=== PATIENT | male | born 1945 | race Caucasian/White ===

== ENCOUNTER → 2023-08-26 10:04 | Outpatient (REF) | payer MEDICARE, OTHER, SELFPAY ==
[2023-08-26 12:09] LABS: % Basophils 0.4 % (0-2); % Eosinophils 4.6 % (0-6); % Immature Granulocytes 0.2 % (0-0.5); % Lymphocytes 24.6 % (20.5-51.1); % Monocytes 7.7 % (1.7-9.3); % Neutrophils 62.5 % (42.2-75.2); Absolute Eosinophils 0.3 10^3/uL (0-0.7); Absolute Lymphocytes 1.4 10^3/uL (1.2-3.4); Absolute Monocytes 0.4 10^3/uL (0.1-0.6); Absolute Neutrophils 3.5 10^3/uL (1.4-6.5); Hematocrit 34.8 % (39.0-52.0); Hemoglobin 12.2 g/dL (13.0-18.0); Mean Corp Hgb Conc. 35.1 g/dL (33.0-37.0); Mean Corpuscular Hgb 33.1 pg (27.0-31.0); Mean Corpuscular Volume 94.3 fL (80.0-94.0); Mean Platelet Volume 10.5 fL (7.4-10.4); Nucleated Red Blood Cells % 0 % (-); Platelet Count 203 10^3/uL (130-400); Red Blood Cell Count 3.69 10^6/uL (4.70-6.10); Red Cell Dist. Width 13.8 % (11.5-14.5); White Blood Cell Count 5.6 10^3/uL (4.8-10.8)
[2023-08-26 12:15] LABS: ALT (SGPT) 15 U/L (0-50); AST (SGOT) 28 U/L (17-59); Albumin 4.1 g/dl (3.5-5.0); Alkaline Phosphatase 53 U/L (38-126); Blood Urea Nitrogen 21 mg/dl (9-20); Carbon Dioxide 28 mmol/L (22-30); Chloride 106 mmol/L (98-107); Glucose 97 mg/dl (70-99); Potassium 4.3 mmol/L (3.5-5.1); Sodium 141 mmol/L (135-145); Total Bilirubin 0.7 mg/dl (0.2-1.3); Total Protein 6.6 g/dl (6.3-8.2); eGFR > 60.00
== END ==
LOC: HWLAB 10:04
PROVIDERS: ATTENDING PHYSICIAN Internal Medicine Hematology & Oncology; FAMILY PHYSICIAN Internal Medicine
DX: C49.A2 Gastrointestinal stromal tumor of stomach (principal); R05.1 Acute cough
CPT/HCPCS: 36415; 80053; 85025

== ENCOUNTER → 2023-09-23 15:13 | Outpatient (REF) | payer MEDICARE, OTHER, SELFPAY | LOC: HWRAD 15:13 | PROVIDERS: ATTENDING PHYSICIAN Internal Medicine Hematology & Oncology; FAMILY PHYSICIAN Internal Medicine | DX: C49.A2 Gastrointestinal stromal tumor of stomach (principal) | CPT/HCPCS: 71260; 74177; Q9967 ==

== ENCOUNTER → 2023-11-28 10:03 | Outpatient (REF) | payer MEDICARE, OTHER, SELFPAY ==
[2023-11-28 11:27] LABS: % Basophils 0.5 % (0-2); % Eosinophils 4.2 % (0-6); % Immature Granulocytes 0.2 % (0-0.5); % Lymphocytes 24.7 % (20.5-51.1); % Monocytes 7.6 % (1.7-9.3); % Neutrophils 62.8 % (42.2-75.2); Absolute Eosinophils 0.2 10^3/uL (0-0.7); Absolute Lymphocytes 1.4 10^3/uL (1.2-3.4); Absolute Monocytes 0.4 10^3/uL (0.1-0.6); Absolute Neutrophils 3.5 10^3/uL (1.4-6.5); Hematocrit 36.3 % (39.0-52.0); Hemoglobin 12.6 g/dL (13.0-18.0); Mean Corp Hgb Conc. 34.7 g/dL (33.0-37.0); Mean Corpuscular Hgb 33.5 pg (27.0-31.0); Mean Corpuscular Volume 96.5 fL (80.0-94.0); Mean Platelet Volume 10.5 fL (7.4-10.4); Nucleated Red Blood Cells % 0 % (-); Platelet Count 200 10^3/uL (130-400); Red Blood Cell Count 3.76 10^6/uL (4.70-6.10); Red Cell Dist. Width 14.1 % (11.5-14.5); White Blood Cell Count 5.5 10^3/uL (4.8-10.8)
[2023-11-28 11:49] LABS: ALT (SGPT) 16 U/L (0-50); AST (SGOT) 29 U/L (17-59); Albumin 4.1 g/dl (3.5-5.0); Alkaline Phosphatase 53 U/L (38-126); Blood Urea Nitrogen 21 mg/dl (9-20); Calcium 9.2 mg/dl (8.4-10.2); Carbon Dioxide 26 mmol/L (22-30); Chloride 106 mmol/L (98-107); Glucose 96 mg/dl (70-99); Potassium 4.3 mmol/L (3.5-5.1); Sodium 144 mmol/L (135-145); Total Bilirubin 0.8 mg/dl (0.2-1.3); Total Protein 6.5 g/dl (6.3-8.2); eGFR > 60.00
== END ==
LOC: HWLAB 10:03
PROVIDERS: ATTENDING PHYSICIAN Internal Medicine Hematology & Oncology; FAMILY PHYSICIAN Nurse Practitioner Family
DX: C49.A2 Gastrointestinal stromal tumor of stomach (principal)
CPT/HCPCS: 36415; 80053; 85025

== ENCOUNTER → 2023-12-10 08:00 | Outpatient (REF) | payer MEDICARE, OTHER, SELFPAY ==
[2023-12-10 09:45] LABS: % Basophils 0.5 % (0-2); % Immature Granulocytes 0.2 % (0-0.5); % Lymphocytes 20.8 % (20.5-51.1); % Monocytes 7.8 % (1.7-9.3); % Neutrophils 65.7 % (42.2-75.2); Absolute Eosinophils 0.2 10^3/uL (0-0.7); Absolute Lymphocytes 0.9 10^3/uL (1.2-3.4); Absolute Monocytes 0.3 10^3/uL (0.1-0.6); Absolute Neutrophils 2.8 10^3/uL (1.4-6.5); Hematocrit 34.7 % (39.0-52.0); Hemoglobin 12.4 g/dL (13.0-18.0); Mean Corp Hgb Conc. 35.7 g/dL (33.0-37.0); Mean Corpuscular Hgb 33.9 pg (27.0-31.0); Mean Corpuscular Volume 94.8 fL (80.0-94.0); Mean Platelet Volume 10.7 fL (7.4-10.4); Nucleated Red Blood Cells % 0 % (-); Platelet Count 189 10^3/uL (130-400); Red Blood Cell Count 3.66 10^6/uL (4.70-6.10); Red Cell Dist. Width 13.7 % (11.5-14.5); White Blood Cell Count 4.2 10^3/uL (4.8-10.8)
[2023-12-10 09:51] LABS: ALT (SGPT) 13 U/L (0-50); AST (SGOT) 24 U/L (17-59); Albumin 3.8 g/dl (3.5-5.0); Alkaline Phosphatase 50 U/L (38-126); Blood Urea Nitrogen 19 mg/dl (9-20); Calcium 9.1 mg/dl (8.4-10.2); Carbon Dioxide 26 mmol/L (22-30); Chloride 109 mmol/L (98-107); Glucose 105 mg/dl (70-99); HDL Cholesterol 37 mg/dl; LDL Cholesterol, Calculated 92 mg/dl; Potassium 4.2 mmol/L (3.5-5.1); Sodium 144 mmol/L (135-145); Total Bilirubin 0.7 mg/dl (0.2-1.3); Total Cholesterol 145 mg/dl (50-199); Total Protein 6.2 g/dl (6.3-8.2); Triglyceride 82 mg/dl (10-149); Very Low Density Lipoprotein 16 mg/dl (0-30); eGFR > 60.00
[2023-12-10 10:20] LABS: TSH Reflex To Free T4 1.61 uIU/ml (0.47-4.68)
[2023-12-10 11:40] LABS: Glycohemoglobin (HgbA1c) 5.4 % (4.0-5.6)
== END ==
LOC: HWLAB 08:00
PROVIDERS: ATTENDING PHYSICIAN Nurse Practitioner Family
DX: Z01.818 Encounter for other preprocedural examination (principal); N40.1 Benign prostatic hyperplasia with lower urinary tract symptoms; Z00.00 Encounter for general adult medical examination without abnormal findings; H91.93 Unspecified hearing loss, bilateral; M48.02 Spinal stenosis, cervical region; M48.061 Spinal stenosis, lumbar region without neurogenic claudication; R73.01 Impaired fasting glucose; Z86.010 Personal history of colon polyps; E66.9 Obesity, unspecified; N18.31 Chronic kidney disease, stage 3a; E78.2 Mixed hyperlipidemia; K59.01 Slow transit constipation; Z85.09 Personal history of malignant neoplasm of other digestive organs; G47.00 Insomnia, unspecified; R42 Dizziness and giddiness; R25.9 Unspecified abnormal involuntary movements; K21.9 Gastro-esophageal reflux disease without esophagitis
CPT/HCPCS: 36415; 80053; 80061; 83036; 84443; 85025

== ENCOUNTER → 2024-01-03 06:21 | Day surgery (SDC) | payer MEDICARE, OTHER, SELFPAY | LOC: GI 06:21 | PROVIDERS: ATTENDING PHYSICIAN Internal Medicine Gastroenterology | DX: Z12.11 Encounter for screening for malignant neoplasm of colon (principal); Z86.010 Personal history of colon polyps; K64.8 Other hemorrhoids; Q43.8 Other specified congenital malformations of intestine | CPT/HCPCS: G0105 ==

== ENCOUNTER 2024-02-13 14:09 | Emergency (ER) | payer MEDICARE, OTHER, SELFPAY ==
[2024-02-13 14:11] VITALS: BP 114/80
[2024-02-13 14:33] LABS: % Basophils 0.2 % (0-2); % Eosinophils 0.4 % (0-6); % Immature Granulocytes 0.2 % (0-0.5); % Lymphocytes 19.4 % (20.5-51.1); % Monocytes 13.4 % (1.7-9.3); % Neutrophils 66.4 % (42.2-75.2); Absolute Lymphocytes 0.9 10^3/uL (1.2-3.4); Absolute Monocytes 0.6 10^3/uL (0.1-0.6); Absolute Neutrophils 3.1 10^3/uL (1.4-6.5); Hematocrit 35.5 % (39.0-52.0); Hemoglobin 12.7 g/dL (13.0-18.0); Mean Corp Hgb Conc. 35.8 g/dL (33.0-37.0); Mean Corpuscular Hgb 32.2 pg (27.0-31.0); Mean Corpuscular Volume 89.9 fL (80.0-94.0); Mean Platelet Volume 10.4 fL (7.4-10.4); Nucleated Red Blood Cells % 0 % (-); Platelet Count 163 10^3/uL (130-400); Red Blood Cell Count 3.95 10^6/uL (4.70-6.10); Red Cell Dist. Width 13.6 % (11.5-14.5); White Blood Cell Count 4.7 10^3/uL (4.8-10.8)
[2024-02-13 14:49] LABS: ALT (SGPT) 17 U/L (0-50); AST (SGOT) 30 U/L (17-59); Albumin 4.1 g/dl (3.5-5.0); Alkaline Phosphatase 44 U/L (38-126); Blood Urea Nitrogen 17 mg/dl (9-20); Calcium 8.6 mg/dl (8.4-10.2); Carbon Dioxide 22 mmol/L (22-30); Chloride 103 mmol/L (98-107); Glucose 128 mg/dl (70-99); Potassium 3.7 mmol/L (3.5-5.1); Sodium 138 mmol/L (135-145); Total Bilirubin 0.6 mg/dl (0.2-1.3); Total Protein 6.6 g/dl (6.3-8.2); eGFR > 60.00
--- NOTE | 2024-02-13 14:59 | ED.GENMED ---
History of Present Illness
General
Chief Complaint: Seizure
Time Seen by Provider: 02/13/24 14:58
History of Present Illness
History of Present Illness:
TIME OF INITIAL ENCOUNTER: 3 PM
HPI: concerned of possible seizure. H/o gastric cancer. Around 1am today, heard him collapse, she went over to him and he 'stiffened up' for about 10 seconds then was talking but confused. This happened again a few minutes later. No
episodes since, but had a similar episode 6M ago. Called his oncologist who sent him in. Also reports LUE tremor intermittently (none currently on exam). No benzos/alcohol. COVID-positive 2 days ago. No bowel or bladder incontinence. No
significant postictal state. He is on Gleevec., [facility].
EXAM:
GENERAL: Well appearing in no distress
HEENT: Moist oral mucosa
CARDIOVASCULAR: No murmurs, normal heart rate, regular rhythm, No chest wall tenderness
PULMONARY: No respiratory distress, breath sounds are clear and equal
ABDOMEN: Soft with no peritoneal signs, no tenderness
NEUROLOGIC: Excellent strength all extremities, no coordination deficits
PSYCHIATRIC: Appropriate mental status, normal insight and judgement
EXTREMITIES: Nontender, no edema, moves all extremities equally
SKIN: No rash, no lesions
NUMBER AND COMPLEXITY OF PROBLEMS ADDRESSED AT THE ENCOUNTER
� Chronic conditions affecting care: Gastric cancer, GERD, former smoker, hyperlipidemia
� Acute Exacerbation and/or Progression of Chronic Illness: This is an acute problem
� Differential Diagnosis includes: Syncope, viral syndrome, dehydration, seizure, metastatic disease
AMOUNT AND/OR COMPLEXITY OF DATA TO BE REVIEWED AND ANALYZED
� I performed an independent evaluation of and my interpretation is:
EKG:
CT: I personally reviewed CT imaging and see no acute abnormality and agree with radiologist interpretation
X-rays:
Laboratory Studies: CBC is unremarkable, chemistries
Other:
� Review of other/old records: I looked at old records but I see no prior imaging of the brain
� Clinical information was obtained by an independent historian: I spoke to the at bedside
� Prescriptions/Medications Considered but not given:
� Further testing considered but not performed:
RISK OF COMPLICATIONS AND/OR MORBIDITY OR MORTALITY OF PATIENT MANAGEMENT
� Social determinants of health affecting care: Lives at home
� Discussion with other providers: I discussed case with Dr. Berry at 3:30 PM�he recommends outpatient MRI with and without contrast of the brain as well as Keppra 1000 mg twice daily
� Escalation of care including admission/observation vs risk of discharge considered: The patient was observed in the ED and there has been no further episodes.
ANY OTHER UPDATES:
3:45 PM: No further episodes in the ED, well-appearing on reassessment
Past History
Past History
ED Past Medical History: Cancer (gist) and Hypercholesterolemia
ED Past Surgical History: Negative Cardiac
Social History
Tobacco: Non-smoker
Alcohol: None
Drug: None
Personal:
Living: with family
Employment: Retired
Family History
Family History: Other (Noncontributory)
Phy Exam
Physical Exam
Physical Exam:
See HPI
Course
Orders/Labs/Results
Orders:
Orders
02/13/24 14:14
CT Head W/o Iv Contrast Urgent
Comment:
Reason For Exam: seizure.
02/13/24 14:26
Complete Blood Count/With Diff Urgent
Comprehensive Metabolic Panel Urgent
02/13/24 15:43
Levetiracetam [Keppra] 1,000 mg PO NOW STA
Abnormal Lab Results
02/13/24
14:26
WBC 4.7 L 10^3/uL
(4.8-10.8)
RBC 3.95 L 10^6/uL
(4.70-6.10)
Hgb 12.7 L g/dL
(13.0-18.0)
Hct 35.5 L %
(39.0-52.0)
MCH 32.2 H pg
(27.0-31.0)
Absolute Lymphs (auto) 0.9 L 10^3/uL
(1.2-3.4)
Lymphocytes % 19.4 L %
(20.5-51.1)
Monocytes % 13.4 H %
(1.7-9.3)
Glucose 128 H mg/dl
(70-99)
02/13/24 14:26
02/13/24 14:26
Vital Signs
Initial and Last Documented VS:
Initial Vital Signs
Temp Pulse Resp BP Pulse Ox
98.4 F 88 19 114/80 97
02/13/24 14:11 02/13/24 14:11 02/13/24 14:11 02/13/24 14:11 02/13/24 14:11
Last Documented Vital Signs
Temp Pulse Resp BP Pulse Ox
98.4 F 88 19 114/80 97
02/13/24 14:11 02/13/24 14:11 02/13/24 14:11 02/13/24 14:11 02/13/24 14:11
*Critical Care Note
Total Time (30-74mins, 75-104mins- exclusive of procedures): Not Applicable
ED Attending Note
-
Portions of this chart may have been created with voice recognition software.� Occasional wrong word or��sound alike� substitutions may have occurred due to the inherent limitations of voice recognition software.
Discharge Plan
Departure
Patient Disposition: Home (Routine Discharge)
Date of Disposition: 02/13/24
Time of Disposition: 15:43
Patient with high blood pressure during this ER visit?: Yes
Discharge Problem:
Syncope and collapse
Instructions: Seizures, Adult (DC), Syncope (Fainting) (DC)
Prescriptions:
New
levetiracetam 1,000 mg tablet
1,000 mg PO BID 14 Days Qty: 60 0RF
No Action
pravastatin 40 MG tablet
40 mg PO QPM
dutasteride 0.5 MG capsule
0.5 mg PO QPM
polyethylene glycol 3350 17 GRAMS powder in packet
17 grams PO BID
gabapentin 300 MG capsule
300 mg PO TID Qty: 0 0RF
famotidine [Pepcid] 40 MG tablet
20 mg PO BID Qty: 30 0RF
Referrals:
Skyler Liu CRNP [Family Provider] -
Gabriel Berry MD [Active] - Follow up in 2-3 days
Activity Restrictions/Additional Instructions:
The cause of your symptoms is unclear. Is possible you may have had a seizure. Therefore I recommend no driving until cleared by your doctors. CAT scan of the brain shows no abnormality. I discussed your case with one of the neurologist
Carlos, who recommends starting seizure medicine called Keppra 1000 mg twice daily. He also recommends going to your primary care doctor to arrange for an EEG and MRI with and without contrast of the brain.
Interventions
Interventions:
*Risk Screen - Suicide Last Done: 02/13/24 14:11
*General Assessment Last Done: 02/13/24 14:11
*Neglect/Abuse Screening Last Done: 02/13/24 14:11
ED- Fall Risk Assessment Last Done: 02/13/24 15:41
ED- Cardiac Assessment Last Done: 02/13/24 15:41
ED- Neurological Assessment Last Done: 02/13/24 15:41
ED- Pulmonary Assessment Last Done: 02/13/24 15:41
Discharge Date and Time
Print Language: SLOVAK
[2024-02-13] MEDS: KEPPRA 1000 MG PO (15:54)
[2024-02-13 16:00] VITALS: BP 128/73
== END 2024-02-13 16:05 | disposition home or self-care (01) ==
LOC: EMR 14:09
PROVIDERS: EMERGENCY PHYSICIAN Emergency Medicine; FAMILY PHYSICIAN Nurse Practitioner Family
DX: R55 Syncope and collapse (principal); E78.00 Pure hypercholesterolemia, unspecified
CPT/HCPCS: 99284; 70450; 80053; 85025

== ENCOUNTER → 2024-02-17 14:17 | Outpatient (REF) | payer MEDICARE, OTHER, SELFPAY | LOC: HWRAD 14:17 | PROVIDERS: ATTENDING PHYSICIAN Nurse Practitioner Family | DX: R29.90 Unspecified symptoms and signs involving the nervous system (principal) | CPT/HCPCS: 70030 ==

== ENCOUNTER → 2024-02-20 18:50 | Outpatient (REF) | payer MEDICARE, OTHER, SELFPAY | LOC: MRI 18:50 | PROVIDERS: ATTENDING PHYSICIAN Nurse Practitioner Family | DX: R56.9 Unspecified convulsions (principal) | CPT/HCPCS: 70553; A9575 ==

== ENCOUNTER → 2024-02-21 10:03 | Outpatient (REF) | payer MEDICARE, OTHER, SELFPAY ==
[2024-02-21 13:37] LABS: Vitamin B12 953 pg/ml (239-931)
== END ==
LOC: HWLAB 10:03
PROVIDERS: ATTENDING PHYSICIAN Nurse Practitioner Family
DX: R56.9 Unspecified convulsions (principal); R29.90 Unspecified symptoms and signs involving the nervous system; E53.8 Deficiency of other specified B group vitamins
CPT/HCPCS: 36415; 82607

== ENCOUNTER → 2024-03-09 10:21 | Outpatient (REF) | payer MEDICARE, OTHER, SELFPAY | LOC: HWRAD 10:21 | PROVIDERS: ATTENDING PHYSICIAN Internal Medicine Hematology & Oncology; FAMILY PHYSICIAN Nurse Practitioner Family; REFERRING PHYSICIAN Surgery | DX: C49.A2 Gastrointestinal stromal tumor of stomach (principal) | CPT/HCPCS: 71260; 74177; Q9967 ==

== ENCOUNTER 2024-04-21 06:25 | Day surgery (SDC) | payer MEDICARE, OTHER, SELFPAY ==
[2024-04-21 09:28] VITALS: BMI 28.3
[2024-04-21 09:30] VITALS: BMI 28.3
[2024-04-21 09:32] VITALS: BP 149/82
[2024-04-21 12:18] VITALS: BP 115/75
[2024-04-21 12:30] VITALS: BP 132/78
[2024-04-21 12:45] VITALS: BP 130/76
== END 2024-04-21 13:20 | disposition home or self-care (01) ==
LOC: GI 06:25
PROVIDERS: ATTENDING PHYSICIAN Internal Medicine Gastroenterology
DX: K63.89 Other specified diseases of intestine (principal); K64.0 First degree hemorrhoids; R93.3 Abnormal findings on diagnostic imaging of other parts of digestive tract; D12.0 Benign neoplasm of cecum; D12.3 Benign neoplasm of transverse colon
CPT/HCPCS: 45385; 45381; 45380; 88305

== ENCOUNTER → 2024-08-20 10:08 | Outpatient (REF) | payer MEDICARE, OTHER, SELFPAY ==
[2024-08-20 12:04] LABS: % Basophils 0.4 % (0-2); % Eosinophils 2.2 % (0-6); % Immature Granulocytes 0.4 % (0-0.5); % Lymphocytes 23.4 % (20.5-51.1); % Monocytes 6.3 % (1.7-9.3); % Neutrophils 67.3 % (42.2-75.2); Absolute Eosinophils 0.2 10^3/uL (0-0.7); Absolute Lymphocytes 1.6 10^3/uL (1.2-3.4); Absolute Monocytes 0.4 10^3/uL (0.1-0.6); Absolute Neutrophils 4.6 10^3/uL (1.4-6.5); Hematocrit 40.4 % (39.0-52.0); Hemoglobin 13.7 g/dL (13.0-18.0); Mean Corp Hgb Conc. 33.9 g/dL (33.0-37.0); Mean Corpuscular Hgb 30.2 pg (27.0-31.0); Mean Platelet Volume 11.3 fL (7.4-10.4); Nucleated Red Blood Cells % 0 % (-); Platelet Count 200 10^3/uL (130-400); Red Blood Cell Count 4.54 10^6/uL (4.70-6.10); Red Cell Dist. Width 13.2 % (11.5-14.5); White Blood Cell Count 6.8 10^3/uL (4.8-10.8)
[2024-08-20 12:18] LABS: ALT (SGPT) 12 U/L (0-50); AST (SGOT) 20 U/L (17-59); Albumin 4.1 g/dl (3.5-5.0); Alkaline Phosphatase 51 U/L (38-126); Blood Urea Nitrogen 22 mg/dl (9-20); Calcium 9.5 mg/dl (8.4-10.2); Carbon Dioxide 28 mmol/L (22-30); Chloride 108 mmol/L (98-107); Glucose 89 mg/dl (70-99); HDL Cholesterol 42 mg/dl; LDL Cholesterol, Calculated 109 mg/dl; Potassium 4.4 mmol/L (3.5-5.1); Sodium 142 mmol/L (135-145); Total Bilirubin 0.8 mg/dl (0.2-1.3); Total Cholesterol 173 mg/dl (50-199); Total Protein 7.4 g/dl (6.3-8.2); Triglyceride 114 mg/dl (10-149); Very Low Density Lipoprotein 22 mg/dl (0-30); eGFR > 60.00
[2024-08-20 12:30] LABS: Microalbumin, Random Urine 1.5 mg/dl (0.6-1.7); Microalbumin/creatinine Ratio 7.1 mg/g
[2024-08-20 12:46] LABS: Glycohemoglobin (HgbA1c) 5.7 % (4.0-5.6)
[2024-08-20 12:47] LABS: TSH Reflex To Free T4 1.55 uIU/ml (0.47-4.68)
== END ==
LOC: HWLAB 10:08
PROVIDERS: ATTENDING PHYSICIAN Internal Medicine Hematology & Oncology; FAMILY PHYSICIAN Nurse Practitioner Family; REFERRING PHYSICIAN Internal Medicine
DX: C49.A2 Gastrointestinal stromal tumor of stomach (principal); E78.5 Hyperlipidemia, unspecified; R73.01 Impaired fasting glucose; E66.9 Obesity, unspecified; N18.2 Chronic kidney disease, stage 2 (mild)
CPT/HCPCS: 36415; 80053; 80061; 82043; 82570; 83036; 84443; 85025

== ENCOUNTER → 2024-08-26 10:22 | Outpatient (REF) | payer MEDICARE, OTHER, SELFPAY | LOC: RAD 10:22 | PROVIDERS: ATTENDING PHYSICIAN Internal Medicine Hematology & Oncology; FAMILY PHYSICIAN Nurse Practitioner Family; REFERRING PHYSICIAN Internal Medicine | DX: C49.A2 Gastrointestinal stromal tumor of stomach (principal) | CPT/HCPCS: 71260; 74177; Q9967 ==

== ENCOUNTER → 2024-09-23 09:56 | Outpatient (REF) | payer MEDICARE, OTHER, SELFPAY | LOC: WDC 09:56 | PROVIDERS: ATTENDING PHYSICIAN Registered Nurse; FAMILY PHYSICIAN Nurse Practitioner Family | DX: N62 Hypertrophy of breast (principal); R92.8 Other abnormal and inconclusive findings on diagnostic imaging of breast | CPT/HCPCS: 76642; 77062; 77066 ==

== ENCOUNTER → 2024-10-05 09:34 | Outpatient (REF) | payer MEDICARE, OTHER, SELFPAY ==
[2024-10-05 12:39] LABS: PSA, Total - Diagnostic 1.74 ng/ml (0.0-4.0)
== END ==
LOC: HWLAB 09:34
PROVIDERS: ATTENDING PHYSICIAN Specialist; FAMILY PHYSICIAN Nurse Practitioner Family
DX: R97.20 Elevated prostate specific antigen [PSA] (principal)
CPT/HCPCS: 36415; 84153

== ENCOUNTER 2024-10-23 06:26 | Day surgery (SDC) | payer MEDICARE, OTHER, SELFPAY ==
[2024-10-23 12:35] VITALS: BMI 29.0
[2024-10-23 13:52] VITALS: BP 111/69
[2024-10-23 14:00] VITALS: BP 107/66
[2024-10-23 14:15] VITALS: BP 118/81
[2024-10-23 14:21] VITALS: BP 125/81
== END 2024-10-23 14:30 | disposition home or self-care (01) ==
LOC: SDS 06:26
PROVIDERS: ATTENDING PHYSICIAN Internal Medicine Gastroenterology
DX: C49.A2 Gastrointestinal stromal tumor of stomach (principal); K31.7 Polyp of stomach and duodenum
CPT/HCPCS: 43259

== ENCOUNTER → 2025-03-11 09:41 | Outpatient (REF) | payer MEDICARE, OTHER, SELFPAY ==
[2025-03-11 11:07] LABS: Hematocrit 43.2 % (39.0-52.0); Hemoglobin 14.4 g/dL (13.0-18.0); Mean Corp Hgb Conc. 33.3 g/dL (33.0-37.0); Mean Corpuscular Volume 90.6 fL (80.0-94.0); Nucleated Red Blood Cells % 0 % (-); Platelet Count 198 10^3/uL (130-400); Red Cell Dist. Width 13.0 % (11.5-14.5)
[2025-03-11 11:21] LABS: ALT (SGPT) 17 U/L (0-50); AST (SGOT) 24 U/L (17-59); Albumin 4.3 g/dl (3.5-5.0); Alkaline Phosphatase 57 U/L (38-126); Blood Urea Nitrogen 19 mg/dl (9-20); Calcium 9.2 mg/dl (8.4-10.2); Carbon Dioxide 25 mmol/L (22-30); Chloride 107 mmol/L (98-107); Glucose 97 mg/dl (70-99); HDL Cholesterol 41 mg/dl; LDL Cholesterol, Calculated 103 mg/dl; Potassium 4.3 mmol/L (3.5-5.1); Sodium 136 mmol/L (135-145); Total Protein 7.2 g/dl (6.3-8.2); Very Low Density Lipoprotein 29 mg/dl (0-30); eGFR > 60.00
[2025-03-11 11:33] LABS: Glycohemoglobin (HgbA1c) 5.6 % (4.0-5.9)
== END ==
LOC: REG 09:41
PROVIDERS: ATTENDING PHYSICIAN Internal Medicine Hematology & Oncology; FAMILY PHYSICIAN Nurse Practitioner Family
DX: C49.A2 Gastrointestinal stromal tumor of stomach (principal); N62 Hypertrophy of breast; R92.8 Other abnormal and inconclusive findings on diagnostic imaging of breast; R73.01 Impaired fasting glucose; E78.2 Mixed hyperlipidemia
CPT/HCPCS: 36415; 80053; 80061; 83036; 85025

== ENCOUNTER → 2025-03-22 09:16 | Outpatient (REF) | payer MEDICARE, OTHER, SELFPAY | LOC: RAD 09:16 | PROVIDERS: ATTENDING PHYSICIAN Internal Medicine Hematology & Oncology; FAMILY PHYSICIAN Nurse Practitioner Family | DX: C49.A2 Gastrointestinal stromal tumor of stomach (principal) | CPT/HCPCS: 71260; 74177; Q9967 ==